=== PATIENT | female | born 1955 | race Caucasian/White ===

== ENCOUNTER 2016-11-08 06:21 | Day surgery (SDC) | payer BC ==
--- NOTE | ~2016-11-08 | EGD ---
EGD REPORT [facility] [address] [address] NAME: UMM SAEED : [birth year] STATUS : REG [facility] [place] PAT#: [id number] AGE: 61 ADM/REG DATE : 11/08/16 MR#: [id number] REPORT SERV DATE: 11/08/16 DICTATED BY: TEE MONTES DATE: 11/08/16 REPORT STATUS : Draft [facility] DATE: 11/08/16 Endoscopy Center Patient Name: Umm Saeed Date of : 1955 Attending MD: TEE MONTES MD Procedure Date No Time: 11/08/2016 Procedure: Colonoscopy Indications: Colon cancer screening in patient at increased risk: Family history of colon polyps Referring MD: TREVOR WHITEHEAD Medicines: Monitored Anesthesia Care Complications: No immediate complications. Procedure: Pre-Anesthesia Assessment: - ASA Grade Assessment: III - A patient with severe systemic disease. After I obtained informed consent, the scope was passed under direct vision. Throughout the procedure, the patient's blood pressure, pulse, and oxygen saturations were monitored continuously. The [facility] [id number] was introduced through the anus and advanced to the cecum, identified by appendiceal orifice and ileocecal valve. The colonoscopy was performed without difficulty. The patient tolerated the procedure well. The quality of the bowel preparation was fair. Findings: The digital rectal exam was normal. Pertinent negatives include no palpable rectal lesions. The terminal ileum appeared normal. Two sessile polyps were found in the transverse colon. The polyps were 3 to 4 mm in size. These polyps were removed with a cold biopsy forceps. Resection and retrieval were complete. A few diverticula were found in the sigmoid colon. Hemorrhoids were found during retroflexion and were moderate. Impression: - The examined portion of the ileum was normal. - Two 3 to 4 mm polyps in the transverse colon. Resected and retrieved. - Diverticulosis in the sigmoid colon. - Hemorrhoids. Recommendation: - Patient has a contact number available for emergencies. The signs and symptoms of potential delayed complications were discussed with the patient. Return to normal activities tomorrow. Written discharge EGD REPORT [address] [address] NAME: UMM SAEED : [birth year] STATUS : REG [facility] [place] PAT#: [id number] AGE: 61 ADM/REG DATE : 11/08/16 MR#: [id number] REPORT SERV DATE: 11/08/16 DICTATED BY: TEE MONTES DATE: 11/08/16 REPORT STATUS : Draft TRANSCRIBED BY: [employer] DATE: 11/08/16 instructions were provided to the patient. - Regular diet. - Continue present medications. - Repeat colonoscopy in 3 years for surveillance. Procedure Code(s): --- Professional --- 06707, Colonoscopy, flexible, proximal to splenic flexure; with biopsy, single or multiple Diagnosis Code(s): --- Professional --- K64.9, Unspecified hemorrhoids K57.30, Diverticulosis of large intestine without perforation or abscess without bleeding D12.3, Benign neoplasm of transverse colon Z12.11, Encounter for screening for malignant neoplasm of colon Z83.71, Family history of colonic polyps CPT copyright 2013 [employer]. All rights reserved. The codes documented in this report are preliminary and upon inspector elevators review may be revised to meet current compliance requirements. TEE MONTES MD 11/08/2016 8:42 AM This report has been signed electronically. Number of Addenda: 0 Note Initiated On: 11/08/2016 8:07 AM Scope Withdrawal Time 0 hours 7 minutes 48 seconds [address] [address]
--- NOTE | ~2016-11-08 | EGD ---
EGD REPORT [facility] [address] [address] NAME: UMM SAEED : [birth year] STATUS : [place] [facility] [place] PAT#: [id number] AGE: 61 ADM/REG DATE : 11/08/16 MR#: [id number] REPORT SERV DATE: 11/08/16 DICTATED BY: TEE MONTES DATE: 11/08/16 REPORT STATUS : Draft [facility]ANS[facility]ED [facility]: [facility] DATE: 11/08/16 Endoscopy Center Patient Name: Umm Saeed Date of : 1955 Attending MD: TEE MONTES MD Procedure Date No Time: 11/08/2016 Procedure: Upper GI endoscopy Indications: Epigastric abdominal pain, Early satiety Referring MD: TREVOR WHITEHEAD Medicines: Monitored Anesthesia Care Complications: No immediate complications. Procedure: Pre-Anesthesia Assessment: - ASA Grade Assessment: III - A patient with severe systemic disease. After obtaining informed consent, the endoscope was passed under direct vision. Throughout the procedure, the patient's blood pressure, pulse, and oxygen saturations were monitored continuously. The GIF H190 [id number] was introduced through the mouth, and advanced to the afferent and efferent jejunal loops. The upper GI endoscopy was accomplished without difficulty. The patient tolerated the procedure well. Findings: The examined esophagus was normal. s/p Partial Gastrectomy One non-bleeding cratered ulcer with no stigmata of bleeding was found at the anastomosis. The lesion was 15 mm in largest dimension. Biopsies were taken with a cold forceps for histology. Exam of the jejunum was otherwise normal. Impression: - Normal esophagus. - Jejunal ulcer with clean base. Biopsied. Recommendation: - Use Prilosec (omeprazole) 40 mg PO BID. - No aspirin, ibuprofen, naproxen, or other non-steroidal anti-inflammatory drugs. - Repeat the upper endoscopy in 2 months to check healing. Procedure Code(s): --- Professional --- 09365, Esophagogastroduodenoscopy, flexible, transoral; with biopsy, single or multiple Diagnosis Code(s): --- Professional --- EGD [address]PORT [address] [address] NAME: UMM SAEED : [birth year] STATUS : [place] [facility] [place] PAT#: [id number] AGE: 61 ADM/REG DATE : 11/08/16 MR#: [id number] REPORT SERV DATE: 11/08/16 DICTATED BY: TEE MONTES DATE: 11/08/16 REPORT STATUS : Draft TRANSCRIBED BY: [employer] DATE: 11/08/16 K28.9, Gastrojejunal ulcer, unspecified as acute or chronic, without hemorrhage or perforation R10.13, Epigastric pain R68.81, Early satiety CPT copyright 2013 [employer]. All rights reserved. The codes documented in this report are preliminary and upon coder operator review may be revised to meet current compliance requirements. TEE MONTES MD 11/08/2016 8:25 AM This report has been signed electronically. Number of Addenda: 0 Note Initiated On: 11/08/2016 8:11 AM Scope Withdrawal Time 0 hours 0 minutes [address] [place], [place] [address] [address]
[~2016-11-08 06:21] MED LIST: ACET500CAP PO; AMOXIL500 MG PO; ANUSOL HC SUPP1 SUPP PR; AURALGAN OT; B COMPLETE PO; CALTRAT600 PO; CITRACAL PO; CLARIT10 PO; FOSAMAX35 MG PO; FOSAMAX70 MG PO; LORTAB 5 PO; MAXIMUM D3 PO; NOR50 PO; NOR75 PO; NORCO1 TA1 PO; PRILO PO; PRIN10 PO; PRIN20 PO; PROTONIX PO; ULTRAM50 PO; VICODINTAB PO; ZANTAC150 MG PO
== END 2016-11-08 23:59 | disposition home or self-care (01) ==
LOC: DMU 06:21
PROVIDERS: Internal Medicine Gastroenterology
PROC: 0DBL8ZZ Excision of Transverse Colon, Via Natural or Artificial Opening Endoscopic (ICD-10-PCS; principal; 2016-11-08 08:00)
PROC: 0DBA8ZX Excision of Jejunum, Via Natural or Artificial Opening Endoscopic, Diagnostic (ICD-10-PCS; 2016-11-08 08:00)
DX: Z12.11 Encounter for screening for malignant neoplasm of colon (principal); D12.3 Benign neoplasm of transverse colon; K57.30 Diverticulosis of large intestine without perforation or abscess without bleeding; K64.9 Unspecified hemorrhoids; I10 Essential (primary) hypertension; M19.90 Unspecified osteoarthritis, unspecified site; M33.90 Dermatopolymyositis, unspecified, organ involvement unspecified; Z88.2 Allergy status to sulfonamides; Z88.5 Allergy status to narcotic agent; Z88.8 Allergy status to other drugs, medicaments and biological substances; Z83.71 Family history of colonic polyps; Z90.3 Acquired absence of stomach [part of]; Z79.899 Other long term (current) drug therapy
CPT/HCPCS: 88305

== ENCOUNTER 2017-01-20 12:37 | Day surgery (SDC) | payer BC ==
--- NOTE | ~2017-01-20 | EGD ---
EGD REPORT [facility] [address] [address] NAME: UMM SAEED : [birth year] STATUS : REG [facility] [place] PAT#: [id number] AGE: 61 ADM/REG DATE : 01/20/17 MR#: [id number] REPORT SERV DATE: 01/20/17 DICTATED BY: TEE MONTES DATE: 01/20/17 REPORT STATUS : Draft [facility]ANSCRIBED BY: [facility] DATE: 01/20/17 Endoscopy Center Patient Name: Umm Saeed Date of : 1955 Attending MD: TEE MONTES MD Procedure Date No Time: 01/20/2017 Procedure: Upper GI endoscopy Indications: Follow-up of peptic ulcer Referring MD: TREVOR WHITEHEAD Medicines: Monitored Anesthesia Care Complications: No immediate complications. Procedure: Pre-Anesthesia Assessment: - ASA Grade Assessment: III - A patient with severe systemic disease. After obtaining informed consent, the endoscope was passed under direct vision. Throughout the procedure, the patient's blood pressure, pulse, and oxygen saturations were monitored continuously. The GIF H190 [id number] was introduced through the mouth, and advanced to the afferent and efferent jejunal loops. The upper GI endoscopy was accomplished without difficulty. The patient tolerated the procedure well. Findings: The examined esophagus was normal. One non-bleeding superficial gastric ulcer was found at the anastomosis. The lesion was 3 mm in largest dimension. Biopsies were taken with a cold forceps for histology. The examined jejunum was normal. The cardia and gastric fundus were normal on retroflexion. Impression: - Normal esophagus. - Gastric ulcer with clean base. Biopsied. - Normal examined jejunum. Recommendation: - Patient has a contact number available for emergencies. The signs and symptoms of potential delayed complications were discussed with the patient. Return to normal activities tomorrow. Written discharge instructions were provided to the patient. - Regular diet. - Continue present medications. - Return to GI clinic in 6 months. - Await pathology results. EGD REPORT [address] [address] NAME: UMM SAEED : [birth year] STATUS : REG [facility]#: [id number] AGE: 61 ADM/REG DATE : 01/20/17 MR#: [id number] REPORT SERV DATE: 01/20/17 DICTATED BY: TEE MONTES DATE: 01/20/17 REPORT STATUS : Draft TRANSCRIBED BY: [employer] DATE: 01/20/17 Procedure Code(s): --- Professional --- 28746, Esophagogastroduodenoscopy, flexible, transoral; with biopsy, single or multiple Diagnosis Code(s): --- Professional --- K25.9, Gastric ulcer, unspecified as acute or chronic, without hemorrhage or perforation K27.9, Peptic ulcer, site unspecified, unspecified as acute or chronic, without hemorrhage or perforation CPT copyright 2013 [employer]. All rights reserved. The codes documented in this report are preliminary and upon field service coordinator review may be revised to meet current compliance requirements. TEE MONTES MD 01/20/2017 2:49 PM This report has been signed electronically. Number of Addenda: 0 Note Initiated On: 01/20/2017 2:31 PM Scope Withdrawal Time 0 hours 0 minutes [address] [place] [id number]
== END 2017-01-20 23:59 | disposition home or self-care (01) ==
LOC: DMU 12:37
PROVIDERS: Internal Medicine Gastroenterology
PROC: 0DB68ZX Excision of Stomach, Via Natural or Artificial Opening Endoscopic, Diagnostic (ICD-10-PCS; principal; 2017-01-20 14:00)
DX: K52.9 Noninfective gastroenteritis and colitis, unspecified (principal); I10 Essential (primary) hypertension; M19.90 Unspecified osteoarthritis, unspecified site; K21.9 Gastro-esophageal reflux disease without esophagitis; K92.2 Gastrointestinal hemorrhage, unspecified; K31.1 Adult hypertrophic pyloric stenosis; K44.9 Diaphragmatic hernia without obstruction or gangrene; F32.9 Major depressive disorder, single episode, unspecified; D64.9 Anemia, unspecified; R56.9 Unspecified convulsions; Z88.6 Allergy status to analgesic agent; Z88.2 Allergy status to sulfonamides; Z88.8 Allergy status to other drugs, medicaments and biological substances; Z79.891 Long term (current) use of opiate analgesic; Z79.899 Other long term (current) drug therapy; Z90.710 Acquired absence of both cervix and uterus; Z98.890 Other specified postprocedural states
CPT/HCPCS: 88305